=== PATIENT | female | born 1960 | race American Indian/Alaskan Native ===

== ENCOUNTER 2016-09-22 09:08 | Day surgery (SDC) | payer OTHER ==
[~2016-09-22 09:08] MED LIST: Acetaminophen 325 MG Tab PO PRN; Acetaminophen/Codeine 300-30 MG Tab PO PRN; Cataract Ophth Solution EYELF ONE; Dexamethasone 4 MG/ML SDV ONE; Midazolam 1 MG/ML 2 ML SDV ONE; Moxifloxacin 0.5% Ophth Soln 3 ML Bottle EYELF ONE; Ondansetron 4 MG/2 ML SDV IVPUSH PRN; Phenylephrine 10% Ophth Soln 5 ML Bot EYELF ONE; Phenylephrine 10% Ophth Soln 5 ML Bot EYELF PRN; Povidone-Iodine 5% Sterile Ophth Soln 30 ML Bottle EYELF ONE; Proparacaine 0.5% Ophth Soln 15 ML Bottle EYELF ONE; Sodium Chloride 0.9% 10 ML Syringe FLUSH PRN; Timolol Maleate 0.5% Ophth Soln 5 ML Bottle EYELF ONE
[2016-09-22] MEDS ORDERED: Tetracaine HCl/PF 0.5% 4 ML Bottle EYELF ONE (11:23)
[2016-09-22] MEDS ORDERED: Povidone-Iodine 5% Sterile Ophth Soln 30 ML Bottle EYELF ONE (11:23)
[2016-09-22] MEDS ORDERED: Apraclonidine 0.5% Ophth Soln 5 ML Bot EYELF ONE (11:23)
[2016-09-22] MEDS ORDERED: Diclofenac Sodium 0.1% Ophth Soln 5 ML Bottle EYELF ONE (11:24)
[2016-09-22] MEDS ORDERED: Chondroitin Sulfate/Hyaluronate Sodium Ophth Inj 0.75 ML Syringe EYELF ONE (11:24)
[2016-09-22] MEDS ORDERED: Dexamethasone/Tobramycin 0.1-0.3% Ophth Oint 3.5 GM Tube EYELF ONE (11:25)
[2016-09-22] MEDS ORDERED: Lidocaine 1% 30 ML SDV ONE (11:25)
[2016-09-22] MEDS ORDERED: Balanced Salt Solution Ophth Irrig 500 ML Bottle IOCULAR ONE (11:25)
[2016-09-22 12:07] VITALS: BP 124/67
--- NOTE | 2016-09-22 12:31 | OR ---
DATE: 09/22/2016 PREOPERATIVE DIAGNOSIS: Cataract, left eye. POSTOPERATIVE DIAGNOSIS: Cataract, left eye. PROCEDURE: Extracapsular cataract extraction with intraocular lens implant, left eye. ANESTHESIA: Topical/local MAC. COMPLICATIONS: None. INDICATION: Ms. Shelby was seen in the clinic. She has complained of a slow progressive decrease in vision. She has difficulty with multiple activities of daily living. Examination reveals mixed cataract. I explained options. I offered cataract surgery and I explained risks preoperatively including the potential for infection, retinal detachment, loss of vision, need for additional surgery, and risks associated with anesthesia. We discussed implant options. She has requested a monofocal implant. She is comfortable wearing glasses following surgery if necessary. OPERATIVE DESCRIPTION: After informed consent was obtained and the risks, benefits, and alternatives were explained, the patient was brought to the operative suite and topical anesthesia was administered. The patient was then prepped and draped in the sterile fashion and attention was placed on the left eye. A sterile lid speculum was placed into the left eye to allow operative exposure. A full-thickness paracentesis was made in the temporal portion of the operative eye. Preservative-free lidocaine 0.1 mL was injected into the anterior chamber followed by viscoelastic. A full-thickness corneal incision was then made into the anterior chamber. A bent needle cystotome was used to create a small art in the anterior capsule. The capsulorrhexis forceps was then used to create a 360-degree curvilinear capsulorrhexis. The nucleus was then removed using a phacoemulsification handpiece and the remaining cortical material was then removed with irrigation and aspiration handpiece. Following removal of the cortical material, the capsular bag was then inspected and noted to be free of any holes or tears. Viscoelastic was then injected into the capsular bag and the intraocular lens was inserted into the capsular bag. No complications occurred. The viscoelastic material was then removed from both the anterior and posterior chambers and from behind the IOL. The lens and capsular bag were then reinspected. The IOL was well centered and the capsular bag intact. The wound and paracentesis sites were inspected and hydrated with balanced saline solution. Both were found to be self-sealing. The intraocular pressure was assessed digitally and found to be within normal range. A good red reflex was noted at the completion of the procedure. No complications occurred during the operation. At the completion of the procedure, Maxitrol, Voltaren, and Iopidine drops were placed into the operative eye. A sterile eye shield was placed over the operative eye and the patient was transported to the postoperative recovery area having tolerated the procedure well. Postoperative instructions were given along with a postoperative appointment. The patient was advised to call with any questions or concerns. [facility] /[id number]
[2016-09-22] MEDS ORDERED: Dexamethasone 4 MG/ML SDV IV ONE (14:29)
[2016-09-22] MEDS ORDERED: Midazolam 1 MG/ML 2 ML SDV IV ONE (14:29)
== END 2016-09-22 12:11 | disposition home or self-care (01) ==
LOC: DL.SDS 09:08
PROVIDERS: ATTEND Ophthalmology
DX: H26.9 Unspecified cataract (principal); G47.33 Obstructive sleep apnea (adult) (pediatric); I10 Essential (primary) hypertension; E78.5 Hyperlipidemia, unspecified; E03.9 Hypothyroidism, unspecified; E55.9 Vitamin D deficiency, unspecified; E11.42 Type 2 diabetes mellitus with diabetic polyneuropathy; F17.210 Nicotine dependence, cigarettes, uncomplicated; E11.319 Type 2 diabetes mellitus with unspecified diabetic retinopathy without macular edema; Z88.1 Allergy status to other antibiotic agents; Z88.2 Allergy status to sulfonamides; Z88.8 Allergy status to other drugs, medicaments and biological substances; Z98.890 Other specified postprocedural states; Z79.899 Other long term (current) drug therapy; F32.9 Major depressive disorder, single episode, unspecified
CPT/HCPCS: 66984; A9270; J1100; J2250; J7050; V2632

== ENCOUNTER 2016-09-29 09:10 | Day surgery (SDC) | payer OTHER ==
[2016-09-29] MEDS ORDERED: Moxifloxacin 0.5% Ophth Soln 3 ML Bottle EYERT ONE (09:30)
[2016-09-29] MEDS ORDERED: Proparacaine 0.5% Ophth Soln 15 ML Bottle EYERT SCH (09:30)
[2016-09-29] MEDS ORDERED: Sodium Chloride 0.9% 10 ML Syringe FLUSH PRN (09:30)
[2016-09-29] MEDS ORDERED: Timolol Maleate 0.5% Ophth Soln 5 ML Bottle EYERT ONE (09:30)
[2016-09-29] MEDS ORDERED: Dilation Soln 1 EA EACH EYERT ONE (09:30)
[2016-09-29] MEDS ORDERED: Povidone-Iodine 5% Sterile Ophth Soln 30 ML Bottle EYERT ONE ×2 (09:30→10:35)
[2016-09-29] MEDS ORDERED: Phenylephrine 10% Ophth Soln 5 ML Bot EYERT ONE (09:30)
[2016-09-29] MEDS ORDERED: Midazolam 1 MG/ML 2 ML SDV ONE (10:08)
[2016-09-29] MEDS ORDERED: Dexamethasone 4 MG/ML SDV ONE (10:08)
[2016-09-29] MEDS ORDERED: Tetracaine HCl/PF 0.5% 4 ML Bottle EYERT ONE (10:35)
[2016-09-29] MEDS ORDERED: Diclofenac Sodium 0.1% Ophth Soln 5 ML Bottle EYERT ONE (10:36)
[2016-09-29] MEDS ORDERED: Lidocaine 1% 30 ML SDV ONE (10:36)
[2016-09-29] MEDS ORDERED: Apraclonidine 0.5% Ophth Soln 5 ML Bot EYERT ONE (10:36)
[2016-09-29] MEDS ORDERED: Dexamethasone/Tobramycin 0.1-0.3% Ophth Oint 3.5 GM Tube EYERT ONE (10:36)
[2016-09-29] MEDS ORDERED: Balanced Salt Solution Ophth Irrig 500 ML Bottle IOCULAR ONE (10:37)
[2016-09-29] MEDS ORDERED: Chondroitin Sulfate/Hyaluronate Sodium Ophth Inj 0.75 ML Syringe EYERT ONE (10:37)
[2016-09-29 11:35] VITALS: BP 124/60
--- NOTE | 2016-09-29 11:41 | OR ---
DATE: 09/29/2016 PREOPERATIVE DIAGNOSIS: Cataract, right eye. POSTOPERATIVE DIAGNOSIS: Cataract, right eye. PROCEDURE: Extracapsular cataract extraction with intraocular lens implant, right eye. ANESTHESIA: Topical/local MAC. COMPLICATIONS: None. INDICATION: Ms. Shelby was seen in the clinic. Her examination reveals mixed nuclear and central cortical cataract. She is symptomatic and requested cataract surgery. I offered surgery and I explained risks preoperatively including but not limited to, infection, retinal detachment, loss of vision, need for additional surgery, and risks associated with anesthesia. We discussed implant options. She has requested a monofocal implant. She is comfortable wearing glasses following surgery if necessary. OPERATIVE DESCRIPTION: After informed consent was obtained and the risks, benefits, and alternatives were explained, the patient was brought to the operative suite and topical anesthesia was administered. The patient was then prepped and draped in the sterile fashion and attention was placed on the right eye. A sterile lid speculum was placed into the right eye to allow operative exposure. A full-thickness paracentesis was made in the temporal portion of the operative eye. Preservative-free lidocaine 0.1 mL was injected into the anterior chamber followed by viscoelastic. A full-thickness corneal incision was then made into the anterior chamber. A bent needle cystotome was used to create a small art in the anterior capsule. The capsulorrhexis forceps was then used to create a 360-degree curvilinear capsulorrhexis. The nucleus was then removed using a phacoemulsification handpiece and the remaining cortical material was then removed with irrigation and aspiration handpiece. Following removal of the cortical material, the capsular bag was then inspected and noted to be free of any holes or tears. Viscoelastic was then injected into the capsular bag and the intraocular lens was inserted into the capsular bag. The viscoelastic material was then removed from both the anterior and posterior chambers and from behind the IOL. The lens and capsular bag were then reinspected. The IOL was well centered and the capsular bag intact. The wound and paracentesis sites were inspected and hydrated with balanced saline solution. Both were found to be self- sealing. The intraocular pressure was assessed digitally and found to be within normal range. A good red reflex was noted at the completion of the procedure. No complications occurred during the operation. At the completion of the procedure, Maxitrol, Voltaren, and Iopidine drops were placed into the operative eye. A sterile eye shield was placed over the operative eye and the patient was transported to the postoperative recovery area having tolerated the procedure well. Postoperative instructions were given along with a postoperative appointment. The patient was advised to call with any questions or concerns. No complications occurred. [facility] /[id number]
== END 2016-09-29 11:40 | disposition home or self-care (01) ==
LOC: DL.SDS 09:10
PROVIDERS: ATTEND Ophthalmology
DX: H26.9 Unspecified cataract (principal); I10 Essential (primary) hypertension; E78.5 Hyperlipidemia, unspecified; E03.9 Hypothyroidism, unspecified; E55.9 Vitamin D deficiency, unspecified; G47.30 Sleep apnea, unspecified; F32.9 Major depressive disorder, single episode, unspecified; E11.42 Type 2 diabetes mellitus with diabetic polyneuropathy; E11.319 Type 2 diabetes mellitus with unspecified diabetic retinopathy without macular edema; Z88.1 Allergy status to other antibiotic agents; Z88.2 Allergy status to sulfonamides; Z88.8 Allergy status to other drugs, medicaments and biological substances; Z98.890 Other specified postprocedural states
CPT/HCPCS: 66984; A9270; J7050; V2632

== ENCOUNTER 2017-06-04 21:24 | Emergency (ER) | payer OTHER ==
[2017-06-04 21:50] VITALS: BP 147/65
[2017-06-04] MEDS ORDERED: cefTRIAXone 1 GM, Lidocaine 1% 2.1 ML IM ONE ×2 (21:59)
--- NOTE | 2017-06-05 01:49 | ER ---
SUBJECTIVE: The patient is a 56-year-old female, who comes in. She had a right breast carcinoma with right breast biopsy, it is healing well. She has a horizontal scar. She had two AMY drains, one drain has pulled out. She still has one in place with the suction bulb and it is draining and doing well. However, the side of the first drain, she felt there was slight drainage, was unsure if was a little warm, and was wondering if there was any pus or infection. No induration. No fevers. No shortness of breath. No nausea or vomiting. Otherwise, at normal baseline. PAST MEDICAL HISTORY: 1. IDDM. 2. Hypertension. 3. Breast cancer with breast biopsy and then mastectomy. 4. Hypothyroidism. 5. OA. 6. Hyperlipidemia. CURRENT MEDICATIONS: 1. Aspirin 81 mg p.o. daily. 2. Neurontin 900 mg p.o. b.i.d. 3. NovoLog 15 units subcu t.i.d. 4. Levemir 40 units subcu nightly. 5. Cozaar 50 mg p.o. daily. 6. Tramadol p.o. as directed. 7. Vitamin D3 one tablet p.o. daily. 8. Synthroid 1 tablet p.o. daily. 9. Mobic 0.5 tab p.o. daily. 10.Multivitamin 1 tablet p.o. b.i.d. 11.Atorvastatin 1 tablet p.o. daily. 12.Metformin 1 tablet p.o. b.i.d. 13.Ropinirole 1 tablet p.o. at bedtime. ALLERGIES: 1. Sulfa, causes a rash. 2. Lisinopril, causes cough. 3. Vancomycin, causes a rash. SOCIAL HISTORY: She is . Her is here with her. REVIEW OF SYSTEMS: No fevers. No chest pain, shortness of breath, nausea, or vomiting. No new bowel or bladder changes. She is tolerating her medicines and doing well. Please see HPI in regard to the status post mastectomy site. OBJECTIVE: Vital Signs: Stable. She is afebrile. General: A good historian. Moves easily. No respiratory distress. Talkative. A and O x3. GCS of 15. Very pleasant, smiling, nontoxic. HEENT: Normocephalic and atraumatic. Chest: Focused exam of her chest does show a horizontal scar of her right breast and has a healing ridge. There is no induration. No fluctuance. No specific warmth. No redness that would not be expected with the recent surgery and healing process. She does have a AMY drain in place with a suction bulb and it is draining a mostly clear/straw-colored fluid, it is doing well. The site of the other drain is mostly dry. There is a small amount of slight drainage only inside the hole made by the drain. There was no oozing or drainage outside the hole. No bleeding. It also appears fairly healthy. It is cultured and sent to the lab. There is no lymphadenopathy and her arm or her neck. The area appears to be doing very well. There is no dehiscence. She moves air well. Her right arm are nontender. This is her right breast. The right breast is the one with a mastectomy. EMERGENCY ROOM COURSE: The wound site was cultured and her blood was cultured as well. She was given 1 g of Rocephin as empiric therapy on. She remained stable. ASSESSMENT: Recheck of right mastectomy wound with cultured wound. PLAN: Keep appointment on Tuesday with her specialist. Culture results should be back at least a preliminary. Continue with her current meds. Follow closely. Continue changing the bulb suction from the AMY drains. Stay with family. [facility] /[id number]
== END 2017-06-04 22:31 | disposition home or self-care (01) ==
LOC: DL.ED 21:24
DX: Z48.01 Encounter for change or removal of surgical wound dressing (principal); C50.911 Malignant neoplasm of unspecified site of right female breast; E11.9 Type 2 diabetes mellitus without complications; I10 Essential (primary) hypertension; E03.9 Hypothyroidism, unspecified; Z79.82 Long term (current) use of aspirin; Z79.899 Other long term (current) drug therapy; Z79.84 Long term (current) use of oral hypoglycemic drugs; Z88.2 Allergy status to sulfonamides; Z88.8 Allergy status to other drugs, medicaments and biological substances; Z88.1 Allergy status to other antibiotic agents
CPT/HCPCS: 36415; 87040; 87070; 87077; 87186; 96372; 99283; J0696

== ENCOUNTER 2017-07-14 16:22 | Emergency (ER) | payer OTHER ==
--- NOTE | 2017-07-14 17:55 | EDM.PDOC ---
<Darshana Silva - Last Filed: 07/14/17 18:56> ED HPI GENERAL MEDICAL PROBLEM - General Chief Complaint: Fever Stated Complaint: [id number] TEMP WAY UP TAKING CHEMO Time Seen by Provider: 07/14/17 17:53 Source of Information: Reports: Patient, Family, Old Records, RN History Limitations: Reports: No Limitations - History of Present Illness INITIAL COMMENTS - FREE TEXT/NARRATIVE: 56 yo Type 2 Diabetic currently undergoing chemotherapy for Triple Negative Breast cancer presents with reported fever of 103 this morning. She was told by [facility] to go to her nearest Emergency department. She took 4 325mg Tylenol before arriving at the ED, temperature on arrival is 98.6 F. She has nausea, chills, headache, and fatigue which she says always appears right before her next chemotherapy treatment. Her next treatment is 07/18/17. She has oral sores on the hard palate, treated with an oral rinse solution. She is having tightening, pressured chest pain off and on for the past few weeks. She has a non-productive cough. Denies sinus pain, abdominal pain, edema of hands and feet, nasal drainage On physical exam of feet, it is noted the left great toe is swollen, hot, and erythmatic with redness radiating to dorsum of foot. Daughter states she noticed the swelling yesterday, but it is more swollen today. Pin-prick sensation is diminished over the medial side of the foot. First two toes of the right foot removed due to Diabetic complications. Onset: Sudden Duration: Hour(s): Location: Reports: Head, Face, Abdomen Quality: Reports: Ache, Pressure Severity: Moderate Improves with: Reports: Heat Therapy, Rest Worsens with: Reports: Medication, Movement Context: Reports: Activity Associated Symptoms: Reports: Cough, Fever/Chills, Headaches, Loss of Appetite, Malaise, Nausea/Vomiting, Shortness of Breath Treatments CUSTOMER PROGRAM MANAGER: Reports: Acetaminophen Chest Pain Score (Numeric/FACES): 4 - Related Data Allergies Allergy/AdvReac Type Severity Reaction Status Date / Time lisinopril Allergy Cough Verified 07/14/17 17:32 Sulfa (Sulfonamide Allergy Rash Verified 07/14/17 17:32 Antibiotics) sulfamethoxazole Allergy Cannot Verified 07/14/17 17:32 [From Bactrim] Remember trimethoprim [From Bactrim] Allergy Cannot Verified 07/14/17 17:32 Remember vancomycin Allergy Rash Verified 07/14/17 17:32 Home Meds: Home Meds Aspirin [Ecotrin] 81 mg PO DAILY 08/13/13 [History] Gabapentin [Neurontin] 900 mg PO BID 08/13/13 [History] Insulin Aspart [NovoLOG] 8 units SQ TIDM 08/13/13 [History] Insulin Detemir [Levemir] 40 units SQ .NIGHTLY 08/13/13 [History] Losartan [Cozaar] 50 mg PO DAILY 08/13/13 [History] traMADol HCl [Ultram] 1 tab PO ASDIRECTED PRN 08/13/13 [History] Cholecalciferol (Vitamin D3) [Vitamin D3] 1 tab PO DAILY 09/16/16 [History] Levothyroxine Sodium [Synthroid] 1 tab PO DAILY 09/16/16 [History] Meloxicam [Mobic] 0.5 tab PO DAILY 09/16/16 [History] Vit A/Vit C/Vit E/Zinc/Copper [Preservision] 1 tab PO BID 09/16/16 [History] atorvaSTATin Calcium [Atorvastatin Calcium] 1 tab PO DAILY 09/16/16 [History] metFORMIN [Glucophage] 1 tab PO BID 09/16/16 [History] rOPINIRole HCl [Ropinirole HCl] 1 tab PO BEDTIME 09/16/16 [History] Levofloxacin 500 mg PO DAILY 07/14/17 [History] Ondansetron HCl [Ondansetron] 8 mg PO TID 07/14/17 [History] Prochlorperazine Maleate 10 mg PO Q4HR 07/14/17 [History] Past Medical History HEENT History: Reports: Cataract Cardiovascular History: Reports: High Cholesterol, Hypertension Respiratory History: Reports: Bronchitis, Recurrent, Sleep Apnea Gastrointestinal History: Reports: None Genitourinary History: Reports: Renal Calculus HYDRAULIC MINER History: Reports: , Spontaneous Musculoskeletal History: Reports: Osteoarthritis Neurological History: Reports: None Psychiatric History: Reports: Depression Endocrine/Metabolic History: Reports: Diabetes, Type II, Hypothyroidism, Vitamin D Deficiency Hematologic History: Reports: Other (See Below) Other Hematologic History: Vitamin D deficiency Immunologic History: Reports: None Oncologic (Cancer) History: Reports: Breast Dermatologic History: Reports: Eczema - Infectious Disease History Infectious Disease History: Reports: Chicken Pox, Influenza, Shingles - Past Surgical History Head Surgeries/Procedures: Reports: None HEENT Surgical History: Reports: None, Cataract Surgery GI Surgical History: Reports: None Female Surgical History: Reports: D&C, Mastectomy, Tubal Ligation Other Female Surgeries/Procedures: Rt. mastectomy Endocrine Surgical History: Reports: None Musculoskeletal Surgical History: Reports: None Social & Family History - Family History Family Medical History: Noncontributory Endocrine/Metabolic: Reports: Diabetes, type II Oncologic: Reports: Breast, Colon - Tobacco Use Smoking Status *Q: Former Smoker Years of Tobacco use: 30 Used Tobacco, but Quit: Yes Month/Year Tobacco Last Used: 02/24 - Caffeine Use Caffeine Use: Reports: Tea - Recreational Drug Use Recreational Drug Use: No ED ROS GENERAL - Review of Systems Review Of Systems: See Below Constitutional: Reports: Fever, Chills, Malaise, Fatigue, Decreased Appetite HEENT: Denies: Eye Pain, Nosebleed, Sinus Problem, Throat Pain Respiratory: Reports: Shortness of Breath, Cough Cardiovascular: Reports: Chest Pain. Denies: Claudication, Edema, Palpitations GI/Abdominal: Reports: Anorexia. Denies: Abdominal Pain, Constipation, Diarrhea , Difficulty Swallowing Musculoskeletal: Reports: No Symptoms Skin: Reports: Mottled (Right arm, yesterday ), Erythema (Left great toe, radiating to dorsum of foot. Dark purple bruising on medial side of great toe ) Neurological: Reports: Dizziness, Headache, Numbness, Paresthesia (diabetic ) ED EXAM, SEPSIS - Physical Exam Exam: See Below Exam Limited By: No Limitations General Appearance: Alert, WD/WN, No Apparent Distress, Obese Throat/Mouth: Normal Lips, Normal Teeth, Normal Gums, Normal Voice, No Airway Compromise, Oral Ulcers Head: Atraumatic, Normocephalic Neck: Normal Inspection, Supple, Non-Tender. No: Lymphadenopathy (L), Lymphadenopathy (R) Respiratory/Chest: No Respiratory Distress, Lungs Clear, Normal Breath Sounds, No Accessory Muscle Use, Chest Non-Tender Cardiovascular: Regular Rate, Rhythm, No Edema, No Murmur, No Rub Peripheral Pulses: 2+: Radial (L), Radial (R) GI/Abdominal Exam: Normal Bowel Sounds Back: Normal Inspection Extremities: No Pedal Edema, Increased Warmth (Left great toe, radiating to dorsum of foot. Dark purple bruising on medial side of great toe ) Neurological: Alert, Oriented Psychiatric: Normal Affect Skin: Warm, Dry, Erythema (Left great toe, radiating to dorsum of foot. Dark purple bruising on medial side of great toe ) EKG INTERPRETATION EKG Date: 07/14/17 Time: 18:02 Rhythm: NSR [place]: Normal P-Wave: Present QRS: Normal QT: Normal Comparison: NA - No Prior EKG Course - Vital Signs Last Recorded V/S: Last Vital Signs Temp 36.4 C 07/14/17 18:25 Pulse 97 07/14/17 17:05 Resp 14 07/14/17 17:05 BP 99/47 L 07/14/17 17:05 Pulse Ox 98 07/14/17 17:05 - Orders/Labs/Meds Orders: Active Orders 24 hr Category Date Time Status EKG 12 Lead [EKG Documentation Completion] [RC] STAT Care 07/14/17 17:42 Active CULTURE BLOOD [BC] Stat Lab 07/14/17 18:00 Received CULTURE BLOOD [BC] Stat Lab 07/14/17 18:04 Received Blood Culture x2 Reflex Set [OM.PC] Stat Oth 07/14/17 17:42 Ordered Labs: Laboratory Tests 07/14/17 07/14/17 07/14/17 Range/Units 18:00 18:00 18:00 WBC 4.7 L (5.0-10.0) 10^3/uL RBC 3.30 L (4.2-5.4) 10^6/uL Hgb 9.0 L (12.0-16.0) g/dL Hct 28.5 L (37.0-47.0) % MCV 86.4 (80-100) fL MCH 27.3 (27.0-34.0) pg MCHC 31.6 L (33.0-35.0) g/dL Plt Count 133 L (150-450) 10^3/uL Neut % (Auto) 53.7 (42.2-75.2) % Lymph % (Auto) 15.9 L (20.5-50.1) % [place] % (Auto) 29.2 H (2-8) % Eos % (Auto) 0.8 L (1.0-3.0) % Baso % (Auto) 0.4 (0.0-1.0) % Add Manual Diff Yes Neutrophils % (Manual) 48 (42-75) % Band Neutrophils % 11 % Lymphocytes % (Manual) 20 (20-50) % Monocytes % (Manual) 20 H (2-8) % Eosinophils % (Manual) 1 (1-3) % Sodium 136 (135-145) mmol/L Potassium 3.0 L (3.6-5.0) mmol/L Chloride 107 (101-111) mmol/L Carbon Dioxide 23.0 (21.0-31.0) mmol/L Anion Gap 9.0 BUN 16 (7-18) mg/dL Creatinine 0.8 (0.6-1.3) mg/dL Est Cr Clr Drug Dosing 86.93 mL/min Estimated GFR (MDRD) > 60 BUN/Creatinine Ratio 20.00 Glucose 119 H (74-105) mg/dL Lactic Acid 1.2 (0.5-2.2) mmol/L Calcium 7.0 L (8.4-10.2) mg/dl Total Bilirubin 0.5 (0.2-1.0) mg/dL AST 20 (10-42) IU/L ALT 23 (10-60) IU/L Alkaline Phosphatase 53 (42-121) IU/L Troponin I < 0.02 (0.00-0.02) ng/ml Total Protein 5.2 L (6.7-8.2) g/dl Albumin 2.4 L (3.2-5.5) g/dl Globulin 2.8 Albumin/Globulin Ratio 0.86 Departure - Departure Time of Disposition: 18:57 Disposition: Home, Self-Care 01 Clinical Impression: Cellulitis of great toe, left Chemotherapy adverse reaction Qualifiers: Encounter type: subsequent encounter Qualified Code(s): T45.1X5D - Adverse effect of antineoplastic and immunosuppressive drugs, subsequent encounter - Discharge Information Instructions: Cellulitis, Adult, [id number] Referrals: Brandie Lazaro NP [Primary Care Provider] - Forms: ED Department Discharge Additional Instructions: 1) continue levaquin 2) elevate left foot as much as possible 3) notify Dr Orozco tomorrow 4) return if there is any change or concern. - Problem List Review Problem List Initiated/Reviewed/Updated: Yes <Huan Chamberlain - Last Filed: 07/14/17 20:11> Course - Re-Assessments/Exams Free Text/Narrative Re-Assessment/Exam: 07/14/17 19:25 re-exam; pt states feels fine now and is hungry. 07/14/17 20:[address] Melgar. Pt prefers home to eat and will f/u with Dr Lester in am or return if there is any change. Departure - Departure Time of Disposition: 20:08 Condition: Good
[2017-07-14 18:29] LABS: CHLORIDE,CL 107 mmol/L (101-111); SODIUM,NA 136 mmol/L (135-145)
[2017-07-14 20:26] VITALS: BP 116/60
--- NOTE | 2017-07-18 14:45 | EKG ---
07/14/2017 - REJI FREDERICK- TIME: 1802 hours. FINDINGS: As my read is normal sinus rhythm at 91. [facility] /[id number]
== END 2017-07-14 20:25 | disposition home or self-care (01) ==
LOC: DL.ED 16:22
DX: R11.0 Nausea (principal); R51 Headache; R05 Cough; L03.032 Cellulitis of left toe; T45.1X5A Adverse effect of antineoplastic and immunosuppressive drugs, initial encounter; C50.919 Malignant neoplasm of unspecified site of unspecified female breast; Z17.1 Estrogen receptor negative status [ER-]; E78.00 Pure hypercholesterolemia, unspecified; I10 Essential (primary) hypertension; E11.9 Type 2 diabetes mellitus without complications; E03.9 Hypothyroidism, unspecified; Z88.2 Allergy status to sulfonamides; Z88.1 Allergy status to other antibiotic agents; Z88.8 Allergy status to other drugs, medicaments and biological substances; Z79.82 Long term (current) use of aspirin; Z79.899 Other long term (current) drug therapy; Z79.4 Long term (current) use of insulin; Z87.891 Personal history of nicotine dependence
CPT/HCPCS: 36415; 71045; 80053; 83605; 84484; 85025; 87040; 93005; 99284

== ENCOUNTER 2018-09-19 05:25 | Day surgery (SDC) | payer OTHER ==
[2018-09-19] MEDS ORDERED: Midazolam 1 MG/ML 2 ML SDV IV ONE ×7 (05:26→06:38)
[2018-09-19] MEDS ORDERED: fentaNYL 100 MCG/2 ML SDV IV ONE ×5 (05:26→06:42)
[2018-09-19] MEDS ORDERED: Midazolam 1 MG/ML 2 ML SDV ONE (06:19)
[2018-09-19] MEDS ORDERED: fentaNYL 100 MCG/2 ML SDV ONE (06:19)
[2018-09-19] MEDS ORDERED: Dextrose 5%-0.45% NaCl 1,000 ML IV SCH (07:00)
[2018-09-19] MEDS ORDERED: Sodium Chloride 0.9% 10 ML Syringe FLUSH PRN (07:00)
--- NOTE | 2018-09-19 08:06 | OR ---
DATE: 09/19/2018 PROCEDURE: Total colonoscopy. INSTRUMENT USED: PCF-H190DL Olympus video colonoscope. PREMEDICATIONS: Fentanyl 200 mcg intravenous, Versed 4 mg intravenous, nasal O2 cannula. The procedure was done under pulse oximetry, BP recording, and respiratory care assistant. INDICATION: The patient with high-risk family history for colon cancer. Colonoscopic examination is done for detection of any polypoid lesions and removal, endoscopic hemostasis therapy if needed. DESCRIPTION OF PROCEDURE: Initial rectal exam was unremarkable. Rigid anoscopy was normal. The colonoscope was passed with ease up to the ileocecal area, photographs were taken of the normal-appearing cecum, identified by double- bulged ileocecal folds. No bleeding was noted from any of the visualized areas at the commencement of the examination. The bowel preparation was inadequate, large amount of fecal material noted in all the regions, Hammett scale 1. No stricture. No vascular ectasia. No large isolated ulcerations seen. No evidence of diffuse inflammatory bowel disease in the form of friability, contact bleeding, or ulcerations. No polyp or tumor mass identified. Probing the proximal sides of folds and flexures using adequate distention and clearing up the stool material, withdrawal of the scope was made. Cecum to rectum time over 6 minutes. No bleeding was noted from any of the visualized areas at the completion of examination. IMPRESSION: Normal study. The patient tolerated the procedure well. [facility] /[id number]
[2018-09-19 09:16] VITALS: BP 126/64
--- NOTE | 2018-09-19 09:50 | LETTER ---
09/19/2018 Brandie Lazaro NP [facility] [address] [place] [address] RE: OTONIELKAITLIN ANGELA : 1960 Dear Ms. Lazaro: Ms. Kaitlin Shelby had colonoscopic examination done this morning and she tolerated the procedure well. I herewith send a copy of the endoscopy note and photographs for your review. Thank you. Sincerely, [facility] /[id number]
== END 2018-09-19 09:01 | disposition home or self-care (01) ==
LOC: DL.ENDO 05:25
PROVIDERS: ATTEND Internal Medicine Gastroenterology
DX: Z12.11 Encounter for screening for malignant neoplasm of colon (principal); Z80.0 Family history of malignant neoplasm of digestive organs
CPT/HCPCS: 45378; J2250; J3010; J7042; G0121

== ENCOUNTER 2019-03-29 06:16 | Day surgery (SDC) | payer OTHER ==
[~2019-03-29 06:16] MED LIST changes: -Acetaminophen 325 MG Tab PO PRN; -Acetaminophen/Codeine 300-30 MG Tab PO PRN; -Cataract Ophth Solution EYELF ONE; -Dexamethasone 4 MG/ML SDV ONE; +Dextrose 5%-0.45% NaCl 1,000 ML IV SCH; -Moxifloxacin 0.5% Ophth Soln 3 ML Bottle EYELF ONE; -Ondansetron 4 MG/2 ML SDV IVPUSH PRN; -Phenylephrine 10% Ophth Soln 5 ML Bot EYELF ONE; -Phenylephrine 10% Ophth Soln 5 ML Bot EYELF PRN; -Povidone-Iodine 5% Sterile Ophth Soln 30 ML Bottle EYELF ONE; -Proparacaine 0.5% Ophth Soln 15 ML Bottle EYELF ONE; -Timolol Maleate 0.5% Ophth Soln 5 ML Bottle EYELF ONE; +fentaNYL 100 MCG/2 ML SDV ONE
[2019-03-29] MEDS ORDERED: Midazolam 1 MG/ML 2 ML SDV IV ONE ×7 (06:17→07:38)
[2019-03-29] MEDS ORDERED: fentaNYL 100 MCG/2 ML SDV IV ONE ×7 (06:17→07:59)
[2019-03-29 10:46] VITALS: BP 150/61; PULSE 72
--- NOTE | 2019-03-29 13:15 | OR ---
DATE: 03/29/2019 PROCEDURE: Total colonoscopy. INSTRUMENT USED: PCF-H190DL Olympus video colonoscope. PREMEDICATIONS: Fentanyl 200 mcg intravenous, Versed 4 mg intravenous, nasal O2 cannula. The procedure was done under pulse oximetry, BP recording, and cardiac catheterization technologist. INDICATION: Screening colonoscopic examination is done for detection of any polypoid lesions and removal, endoscopic hemostasis therapy if needed. DESCRIPTION OF PROCEDURE: Initial rectal exam was unremarkable. Rigid anoscopy was normal. The colonoscope was passed with relative ease up to the ileocecal area. Photographs were taken of the normal-appearing cecum, identified by double-bulged ileocecal folds. No bleeding was noted from any of the visualized areas at the commencement of the examination. The bowel preparation was found to be adequate, Harwood scale 2 in all the regions, total score 6. No stricture. No vascular ectasia. No large isolated ulcerations seen. No evidence of diffuse inflammatory bowel disease in the form of friability, contact bleeding, or ulcerations. No polyp or tumor mass identified. Probing the proximal sides of folds and flexures using adequate distention and clearing up the stool material, withdrawal of the scope was made, cecum to rectum time over 6 minutes. No bleeding was noted from any of the visualized areas at the completion of examination. IMPRESSION: Normal study. The patient tolerated the procedure well. [facility] /[id number]
--- NOTE | 2019-03-29 14:03 | LETTER ---
03/29/2019 Brandie Lazaro, [place]LA[facility] [address] [place] [address] RE: OTONIELKAITLIN ANGELA : 1960 Dear Ms. Lazaro: Ms. Kaitlin Shelby had colonoscopic examination done this morning and she tolerated the procedure well. I herewith send a copy of the endoscopy note and photographs for your review. Thank you. Sincerely, [facility] /[id number]
== END 2019-03-29 10:00 | disposition home or self-care (01) ==
LOC: DL.ENDO 06:16
PROVIDERS: ATTEND Internal Medicine Gastroenterology
DX: Z12.11 Encounter for screening for malignant neoplasm of colon (principal)
CPT/HCPCS: 45378; J2250; J3010; J7042; G0121

== ENCOUNTER 2023-07-25 16:28 | Emergency (ER) | payer OTHER ==
[2023-07-25] MEDS: HYDROmorphone 1 MG/ML Syringe IVPUSH ONE (17:31)
[2023-07-25] MEDS: Sodium Chloride 0.9% 10 ML Syringe FLUSH PRN (17:37)
[2023-07-25 18:14] VITALS: BP 116/95; PULSE 82
[2023-07-25] MEDS: Cyclobenzaprine 10 MG Tab PO ONE (18:22)
== END 2023-07-25 18:31 | disposition home or self-care (01) ==
LOC: DL.ED 16:28
DX: S42.321A Displaced transverse fracture of shaft of humerus, right arm, initial encounter for closed fracture (principal); I10 Essential (primary) hypertension; E78.00 Pure hypercholesterolemia, unspecified; E11.9 Type 2 diabetes mellitus without complications; E03.9 Hypothyroidism, unspecified; Z88.1 Allergy status to other antibiotic agents; Z88.8 Allergy status to other drugs, medicaments and biological substances; Z79.82 Long term (current) use of aspirin; Z79.4 Long term (current) use of insulin; Z79.890 Hormone replacement therapy; Z79.84 Long term (current) use of oral hypoglycemic drugs; Z79.85 Long-term (current) use of injectable non-insulin antidiabetic drugs; Z79.899 Other long term (current) drug therapy; V01.90XA Pedestrian on foot injured in collision with pedal cycle, unspecified whether traffic or nontraffic accident, initial encounter; Y93.89 Activity, other specified
CPT/HCPCS: 29105; 73060-RT; 96374; 99284; 99284-25; A9270-GY; J1170; J3490